=== PATIENT | female | born 1970 | race African-American/Black ===

== ENCOUNTER 2016-10-13 11:46 | Day surgery (SDC) | payer OTHER ==
[2016-10-08 16:10] VITALS: BMI 31.1
--- NOTE | 2016-10-13 11:18 | HP ---
History & Physical Update - History History: No Change - Physical Physical: No Change - Assessment Assessment: No Change - Plan Plan: No Change (46 yo F presents for planned ACDF C4-5, C5-[address] Walker. Patient admits she did not take her DM medication yesterday or today. Blood glucose 318, patient ordered 4 units insulin per anesthesia, plan to recheck glucose.)
[~2016-10-13 11:46] MED LIST: oxyCODONE HCL 10 MG SUSTAINED ACTING TABLET PO STA
[2016-10-13] MEDS ORDERED: INSULIN REGULAR HUMAN 100 UNITS/ML *VIAL ONE (13:00)
[2016-10-13] MEDS ORDERED: LIDOCAINE HCL/PF 2% SDV 5ML VIAL ONE (13:07)
[2016-10-13] MEDS ORDERED: MIDAZOLAM HCL 2 MG/2 ML SINGLE DOSE VIAL ONE (13:08)
[2016-10-13] MEDS ORDERED: PROPOFOL 20 ML ONE ×7 (13:08→16:18)
[2016-10-13] MEDS ORDERED: INSULIN REGULAR HUMAN 100 UNITS/ML *VIAL SQ ONE (13:14)
[2016-10-13] MEDS ORDERED: LIDOCAINE 1%-EPI 1:100,000 30 ML MDV IJ ONE (13:39)
[2016-10-13] MEDS ORDERED: GELATIN, ABSORBABLE 100 EACH SPONGE TP ONE (13:39)
[2016-10-13] MEDS ORDERED: THROMBIN (BOVINE) 5,000 UNIT VIAL TP ONE (13:39)
[2016-10-13] MEDS ORDERED: LACTATED RINGERS SOLUTION 1,000 ML IV SCH ×2 (14:15→17:00)
[2016-10-13] MEDS ORDERED: ONDANSETRON 4 MG/2 ML VIAL IVPUSH PRN (14:28)
[2016-10-13] MEDS ORDERED: LIDOCAINE 1%/EPI 1:100000 (50 ML MULTI DOSE VIAL) INF ONE (15:00)
[2016-10-13] MEDS ORDERED: ONDANSETRON 4 MG/2 ML VIAL ONE ×2 (15:47→16:28)
[2016-10-13] MEDS ORDERED: DEXAMETHASONE SOD PHOSPHATE 4 MG/1 ML VIAL ONE ×2 (15:47→16:28)
[2016-10-13] MEDS ORDERED: NEOSTIGMINE METHYLSULFATE 0.5 MG/ML - 10 ML MDV ONE (16:25)
[2016-10-13] MEDS ORDERED: oxyCODONE HCL 5 MG TABLET PO PRN (16:50)
[2016-10-13] MEDS ORDERED: morphine CARPU-JECT 4 MG/1 ML DISP.SYRIN IVPUSH PRN (16:50)
[2016-10-13] MEDS ORDERED: ONDANSETRON 4 MG/2 ML VIAL IVPB PRN (16:50)
[2016-10-13] MEDS ORDERED: diazePAM CARPU-JECT 10 MG/2 ML DISP.SYRIN IVPUSH ONE (16:54)
[2016-10-13] MEDS ORDERED: ACETAMINOPHEN 1000 MG/100 ML VIAL (NON FORMULARY) IVPB PRN (16:54)
[2016-10-13] MEDS ORDERED: ACETAMINOPHEN 1000 MG/100 ML VIAL (NON FORMULARY) IVPB ONE (17:15)
[2016-10-13] MEDS ORDERED: diazePAM 5 MG TABLET PO PRN (17:16)
[2016-10-13] MEDS ORDERED: diazePAM 5 MG TABLET PO ONE (17:17)
--- NOTE | 2016-10-13 17:18 | OP ---
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
--- NOTE | 2016-10-13 17:19 | SURG ---
Surgery Shipper And Receiving Note Shipper And Receiving: Ivon Lopes PA-C Date of Service: 10/13/16 Diagnosis: cervical stenosis C4-5 C5-6 Procedure: ACDF C4-5 C5-6 I was present for the entirety of the operative procedure. For further detail, please refer to operative report. Visit type - Case Type Case Type: Scheduled Admission - Emergency Emergency Visit: No - New patient This patient is new to me today: Yes Date on this admission: 10/13/16 - Critical Care Critical Care patient: No
[2016-10-13] MEDS ORDERED: CEFAZOLIN 1 GM/D5W 50 ML IVPB SCH (22:00)
[2016-10-13] MEDS ORDERED: INSULIN DETEMIR 100 UNITS/ML MDV SQ SCH (22:00)
--- NOTE | 2016-10-13 22:33 | OP ---
DATE OF OPERATION: 10/13/2016 PREOPERATIVE DIAGNOSIS: Cervical stenosis C4-5, C5-6. POSTOPERATIVE DIAGNOSIS: Cervical stenosis C4-5, C5-6. PROCEDURE PERFORMED: 1. Anterior cervical diskectomy, fusion C4-5. 2. Anterior cervical diskectomy, fusion C5-6. 3. Placement of instrumentation in C4-C6. 4. Placement of prosthetic cages. SURGEON: Manas Walker M.D. AVIONICS ENGINEER: MARA Miller ESTIMATED BLOOD LOSS: 50 mL INTRAVENOUS FLUIDS: Per anesthesia. ANESTHESIA: General. COMPLICATIONS: There were none. DISPOSITION: Patient brought to the PACU in stable condition. INDICATION FOR SURGERY: The patient is a 46-year-old female who has been suffering from significant pain from her neck down her arms. X-rays and MRI were completed, which noted she has spinal stenosis at C4-5 and C5-6. She had gone through an exhaustive course of treatment for this which included medications, physical therapy, as well as injections. Unfortunately, the pain continued to persist in spite of all this. At this point, risks, benefits, and alternatives were discussed and the patient consented to surgery. OPERATIVE NOTE: Patient is brought to the operating room by anesthesia staff. After appropriate patient identification is performed, general anesthesia was administered. Appropriate anesthetic lines were placed. SCDs were placed on the patient. Neuro monitor leads were attached. She was placed supine on the OR bed with her arms tucked in at the side. All areas of bony prominence are well padded at this time. A shoulder roll was placed underneath the shoulder to extend her neck to the point that she could tolerate in the preoperative holding area. A needle was taped onto her neck to celso off the C5-6 level, and x-rays was taken to confirm this is correct. Needle was removed, and 10 mL of lidocaine with epinephrine was injected into her neck at this time. Her neck was prepped and draped in a sterile manner. At this point timeout was completed. A 2-inch incision was made on the left side of her neck. Dissection was carried down to the platysma. The platysma was cut in line of the skin incision. Next interval between the sternocleidomastoid muscle as well as strap muscles were developed. Next the interval between the carotid sheath as well as tracheal esophagus was developed. Peanuts were used to elevate off the prevertebral fascia. A spinal needle was placed into the C5-6 disk. An x-ray was taken to confirm this was correct. Needle was removed. Longus colli muscles were elevated off. Retractor blades were placed in. Mendez pin was placed into the body of C4 and placed into the body of C6. A knife was used to incise the disk and traction was applied. At this point a microscope was brought in. Using a series of pituitaries, Kerrisons and curets, a diskectomy was completed. The endplates were decorticated at this time. Cages filled with bone graft were placed into C4-5 and C5-6. Distraction was let go. Screw was placed into the body C4, C5, and C6. Mendez pins removed. AP and lateral x-rays confirmed the instrumentation being in good position. Final tightening was performed. A drain was placed. The platysma was closed with 2-0 Vicryl suture. Skin was closed with 3-0 Monocryl suture. Dermabond was applied. Steri-Strips were applied. Sterile dressing was applied. Patient was placed supine on OR bed, extubated in the OR, and brought to the PACU in stable condition. MANAS WALKER M.D. [id number] MTDD
[2016-10-13] MEDS ORDERED: KETOROLAC TROMETHAMINE 15 MG/ML VIAL IVPB PRN (23:19)
[2016-10-13] MEDS ORDERED: INSULIN (NOVOLOG) ASPART 100 UNITS/ML 10ML VIAL ONE (23:23)
[2016-10-13] MEDS: CEFAZOLIN 2 GM/D5W 50 ML IVPB SCH (23:30)
[2016-10-13] MEDS: oxyCODONE HCL 5 MG TABLET PO PRN (23:42)
[2016-10-14] MEDS ORDERED: diazePAM 5 MG TABLET PO PRN (01:00)
[2016-10-14] MEDS: CEFAZOLIN 2 GM/D5W 50 ML IVPB SCH ×2 (01:35→09:28)
[2016-10-14] MEDS: oxyCODONE HCL 5 MG TABLET PO PRN ×3 (05:05→12:42)
[2016-10-14] MEDS ORDERED: INSULIN (NOVOLOG) ASPART 100 UNITS/ML 10ML VIAL ONE ×2 (06:04→11:45)
[2016-10-14 06:44] VITALS: BP 120/60; PULSE 64; TEMP 98.7
[2016-10-14] MEDS ORDERED: glyBURIDE 5 MG TABLET (UD) PO SCH (07:00)
[2016-10-14] MEDS ORDERED: metFORMIN HCL 500 MG TABLET (FP) PO SCH (07:00)
[2016-10-14] MEDS: INSULIN SLIDING SCALE (NOVOLOG) 1 VIAL SQ SCH ×2 (07:00→12:10)
--- NOTE | 2016-10-14 07:08 | DS ---
[id number] of [employer]. Re-checked BGM and now 348. Pt states she doesn't do well with insulin and her Information Security Architect has her on Victoza. OBJECTIVE: Vital Signs Temperature 98.7 F 10/14/16 06:00 Pulse Rate 64 10/14/16 06:00 Respiratory Rate 18 10/14/16 06:00 Blood Pressure 120/60 10/14/16 06:00 O2 Sat by Pulse Oximetry (%) 98 10/14/16 06:43 PHYSICAL EXAM GENERAL: The patient is awake, alert, and fully oriented, in no acute distress. HEAD: Normal with no signs of trauma. EYES: PERRL, extraocular movements intact, sclera anicteric, conjunctiva clear. NECK: Trachea midline, supple. wearing her soft cervical collar. incision c/d/ i. ROSE MARIE with minimal output. No hematoma LUNGS: CTA b/l anteriorly HEART: RRR EXTREMITIES: 2+ pulses, warm, well-perfused, no edema. NEUROLOGICAL: CN II - XII grossly intact. Normal speech, gait not observed. PSYCH: Normal mood, normal affect. SKIN: Warm, dry, normal turgor, no rashes or lesions noted. LABS POC Glucometer 404 UNITS (()) 10/13/16 20:19 HOSPITAL COURSE: Date of Admission:10/13/16 Date of Discharge: 10/14/16 The patient was admitted to the Med-Surg Unit after an elective repair of cervical stenosis. Now, s/p ACDF C4-5, C5-6. The day of surgery, the patient ambulated the hallways with assistance. Narcotic and non-narcotic pain management control was achieved with an oral and IV approach. POD #1, the surgical drain was removed fully intact and without incident. An xray was obtained and confirmed hardware placement at C4-C5, C5-C6, no fractures or dislocations. Janet-operative IV ABX were administered. DVT prophylaxis was achieved with SCDs and early ambulation. The patient ambulated with Physical Therapy and no services were recommended upon discharge. Narcotic scripts and or muscle relaxants were checked with ORS USER INTERFACE ENGINEER prior to escribe. The discharge instructions and an oral pain management plan were reviewed with the patient. Patient to f/u with her Information Security Architect at [facility]. All questions answered. Above plan discussed with Dr. Walker and agreed . Minutes to complete discharge: 15 <Cadan,Martin P - Last Filed: 10/14/16 06:58> Physical Exam: SUBJECTIVE: Patient seen and examined OBJECTIVE: Vital Signs Temperature 98.7 F 10/14/16 06:00 Pulse Rate 64 10/14/16 06:00 Respiratory Rate 18 10/14/16 06:00 Blood Pressure 120/60 10/14/16 06:00 O2 Sat by Pulse Oximetry (%) 98 10/14/16 06:43 PHYSICAL EXAM GENERAL: The patient is awake, alert, and fully oriented, in no acute distress. HEAD: Normal with no signs of trauma. EYES: PERRL, extraocular movements intact, sclera anicteric, conjunctiva clear. ENT: Ears normal, nares patent, oropharynx clear without exudates, moist mucous membranes. NECK: Trachea midline, full range of motion, supple. LUNGS: Breath sounds equal, clear to auscultation bilaterally, no wheezes, no crackles, no accessory muscle use. HEART: Regular rate and rhythm, S1, S2 without murmur, rub or gallop. ABDOMEN: Soft, nontender, nondistended, normoactive bowel sounds, no guarding, no rebound, no hepatosplenomegaly, no masses. EXTREMITIES: 2+ pulses, warm, well-perfused, no edema. NEUROLOGICAL: Cranial nerves II through XII grossly intact. Normal speech, gait not observed. PSYCH: Normal mood, normal affect. SKIN: Warm, dry, normal turgor, no rashes or lesions noted. LABS CBC,CMP POC Glucometer 327 UNITS (()) 10/14/16 09:12 Random Glucose 389 mg/dL (74-106) H* 10/14/16 06:00 HOSPITAL COURSE: Date of Admission:10/13/16 Date of Discharge: 10/14/16 The patient was admitted to the Med-Surg Unit after an elective repair of their ACDF C4-5, C5-6. The day of surgery, the patient ambulated the hallways with assistance. Narcotic and non-narcotic pain management control was achieved with an oral and IV approach. POD #1, the surgical drain was removed fully intact and without incident. An xray was obtained and confirmed hardware placement, no fractures or dislocations. Janet-operative IV ABX were administered. DVT prophylaxis was achieved with SCDs and early ambulation. The patient ambulated with Physical Therapy and no services were recommended upon discharge. Narcotic scripts and or muscle relaxants were checked with ORS USER INTERFACE ENGINEER prior to escibe. The discharge instructions and an oral pain management plan were reviewed with the patient. All questions answered. Above plan discussed with Dr. Walker and agreed. Patient seen and examined Agree with above D/C Planning <aMnas Walker - Last Filed: 10/14/16 11:57> Visit type - Case Type Case Type: Scheduled Admission - New patient This patient is new to me today: Yes Date on this admission: 10/14/16 <Martin Yen - Last Filed: 10/14/16 06:58>
[2016-10-14] MEDS ORDERED: PT OWN MED DRAWER 7, Y5N ONE ×2 (09:15→10:02)
[2016-10-14] MEDS ORDERED: LIRAGLUTIDE 0.6 MG/0.1 ML PEN.INJCTR SQ SCH (10:00)
--- NOTE | 2016-10-14 10:16 | PN ---
Progress Note (short form) - Note Progress Note: 46F POD1 s/p ACDF under GA-ETT doing well. Pt states that pain is moderately well controlled, sensory and motor function is at baseline. AVSS, reports no anesthetic complications.
[2016-10-14] MEDS ORDERED: PATIENT'S OWN MEDICATION (NON-FORMULARY) (Glyburide/Metformin Hcl [Glyburide-Metformin 2.5 PO SCH (22:00)
--- NOTE | 2016-10-16 12:21 | PATH ---
Surgical Pathology Report Patient Name: VISHAL MÉNDEZ [facility]. Rec. #: [id number] /Age/Gender: 1970 (Age: 46) / F Account: [id number] Location: [facility] Taken: 10/13/2016 Received: 10/13/2016 Reported: 10/16/2016 Physicians: Manas Walker M.D. Specimen(s) Received C4-5, C5-6 DISCS. Clinical History Cervical stenosis Final Diagnosis DISC C4-5, C5-6, DISCECTOMY: CARTILAGE WITH DEGENERATIVE CHANGES. Electronically Signed Autumn Yee M.D. Gross Description Received in formalin labeled "C4-5, C5-6 discs," is a 1.4 x 1.0 x 0.3 cm aggregate of epperson fragments of fibrocartilaginous tissue. The specimen is submitted in toto in one cassette. /10/14/201610/14/2016
== END 2016-10-14 13:01 | disposition home or self-care (01) ==
LOC: FASU 11:46 → FM/S 18:20 → FASU 10-14 13:01
PROVIDERS: ATTEND Orthopaedic Surgery Orthopaedic Surgery of the Spine
PROC: 0RG10A0 Fusion of Cervical Vertebral Joint with Interbody Fusion Device, Anterior Approach, Anterior Column, Open Approach (ICD-10-PCS; 2016-10-13)
PROC: 0RG10K0 Fusion of Cervical Vertebral Joint with Nonautologous Tissue Substitute, Anterior Approach, Anterior Column, Open Approach (ICD-10-PCS; 2016-10-13)
PROC: 0RB30ZZ Excision of Cervical Vertebral Disc, Open Approach (ICD-10-PCS; principal; 2016-10-13 15:06)
DX: M48.02 Spinal stenosis, cervical region (principal)
CPT/HCPCS: 36415; 72050-TC; 76001-TC; 82947; 84703; 88304-TC; 94760; 97116-GP; 97161-GP